=== PATIENT | male | born 1995 | race Caucasian/White ===

== ENCOUNTER 2017-08-29 16:20 | Emergency (ER) | payer SELFPAY ==
[~2017-08-29] VITALS: Ht 185.4 cm; Wt 139.1 kg
[2017-08-29 16:23] VITALS: BP 139/87; TEMP 98.3
[2017-08-29] MEDS ORDERED: AMOXICILLIN 50500 MG PO (17:15)
[2017-08-29 17:16] VITALS: PULSE 96
[2017-09-12] MEDS ORDERED: AMOXICILLIN 8751 TAB PO (12:56)
== END 2017-08-29 17:21 | disposition home or self-care (01) ==
LOC: COL.ER 16:20
DX: J02.0 Streptococcal pharyngitis (principal)

== ENCOUNTER → 2017-09-12 | Emergency (ER) | payer SELFPAY ==
[~2017-09-12] VITALS: Ht 182.9 cm; Wt 136.4 kg
[~2017-09-12] MED LIST: AMOXICILLIN 50500 MG PO; AMOXICILLIN 8751 TAB PO
[2017-09-12 11:10] VITALS: BP 138/82; PULSE 104; TEMP 98.2
[2017-09-12 12:35] LABS: CALCIUM 9.9 mg/dL (8.4-10.2); CREATININE, serum 0.91 mg/dL (0.66-1.25); POTASSIUM 4.3 mmol/L (3.4-5.0)
[2017-09-12 12:44] LABS: BASO # 0.1 (0.0-0.2); BASO % 0.6 % (0.0-2.0); EOS # 0.2 (0.0-0.7); EOS % 1.3 % (0-4.0); GRAN # 11.8 (1.4-6.5); GRAN % 67.3 % (42.2-75.2); HEMATOCRIT 46.8 % (42.0-52.0); LYMPH # 4.2 (1.2-3.4); MEAN CELL VOLUME 87 fl (80.0-100.0); MEAN CORPUSCULAR HEMOGLOBIN 30 pg (27.0-31.0); MEAN CORPUSCULAR HGB CONC 34 g/dl (33.0-37.0); MONO % 5.8 % (1.7-9.3); PLATELET COUNT 375 K/mm3 (130-400); RED BLOOD COUNT 5.41 M/mm3 (4.20-5.60); REDCELL DISTRIBUTION WIDTH-CV 12.5 % (11.5-14.5); WHITE BLOOD COUNT 17.5 K/mm3 (4.8-10.8)
== END ==
LOC: COL.ER 10:54
PROVIDERS: Nurse Practitioner
DX: J02.0 Streptococcal pharyngitis (principal)
CPT/HCPCS: J1100

== ENCOUNTER 2017-09-22 18:18 | Emergency (ER) | payer SELFPAY ==
[~2017-09-22] VITALS: Ht 185.4 cm; Wt 140.9 kg
[2017-09-22 18:20] VITALS: BP 132/84; PULSE 109; TEMP 97.8
[2017-09-22] MEDS ORDERED: CLEOCIN HCL300 MG PO (18:53)
== END 2017-09-22 19:01 | disposition home or self-care (01) ==
LOC: COL.ER 18:18
DX: J03.90 Acute tonsillitis, unspecified (principal)

== ENCOUNTER 2017-12-20 10:22 | Emergency (ER) | payer MEDICAID ==
[~2017-12-20] VITALS: Ht 185.4 cm; Wt 136.4 kg
[~2017-12-20 10:22] MED LIST changes: +CLEOCIN HCL300 MG PO
[2017-12-20 10:26] VITALS: BP 156/87; PULSE 104; TEMP 97.8
== END 2017-12-20 11:19 | disposition home or self-care (01) ==
LOC: COL.ER 10:22
DX: J03.90 Acute tonsillitis, unspecified (principal)

== ENCOUNTER 2018-04-26 11:59 | Emergency (ER) | payer MEDICAID ==
[~2018-04-26] VITALS: Ht 185.4 cm; Wt 135.0 kg
[2018-04-26 12:02] VITALS: BP 160/78; PULSE 93; TEMP 98.6
[2018-04-26] MEDS ORDERED: MAGIC MOUTH PO (12:41)
[2018-04-26] MEDS ORDERED: CLEOCIN HC150 MG/CAP PO (12:41)
== END 2018-04-26 13:08 | disposition home or self-care (01) ==
LOC: COL.ER 11:59
DX: J02.0 Streptococcal pharyngitis (principal)
CPT/HCPCS: J1100

== ENCOUNTER 2018-06-01 17:03 | Emergency (ER) | payer MEDICAID ==
[~2018-06-01] VITALS: Ht 185.4 cm; Wt 131.8 kg
[~2018-06-01 17:03] MED LIST changes: +CLEOCIN HC150 MG/CAP PO; +MAGIC MOUTH PO
[2018-06-01 17:13] VITALS: BP 138/85; TEMP 98.5
[2018-06-01] MEDS ORDERED: AMOXICILLIN 8751 TAB PO (17:29)
[2018-06-01 17:40] VITALS: PULSE 84
== END 2018-06-01 17:45 | disposition home or self-care (01) ==
LOC: COL.ER 17:03
DX: J03.91 Acute recurrent tonsillitis, unspecified (principal)
CPT/HCPCS: J1100

== ENCOUNTER 2018-06-29 00:10 | Emergency (ER) | payer MEDICAID ==
[~2018-06-29] VITALS: Ht 185.4 cm; Wt 120.5 kg
[2018-06-29 00:14] VITALS: BP 136/94; TEMP 98.5
[2018-06-29] MEDS ORDERED: LAMISIL250 M1 PO (00:49)
[2018-06-29 01:30] VITALS: PULSE 90
== END 2018-06-29 01:30 | disposition home or self-care (01) ==
LOC: COL.ER 00:10
DX: B35.4 Tinea corporis (principal)

== ENCOUNTER 2018-07-03 17:24 | Emergency (ER) | payer MEDICAID ==
[~2018-07-03] VITALS: Ht 185.4 cm; Wt 120.5 kg
[~2018-07-03 17:24] MED LIST changes: +LAMISIL250 M1 PO
[2018-07-03 17:28] VITALS: BP 140/77; TEMP 98.8
[2018-07-03] MEDS ORDERED: TRIAMCINOLONE A15 G3 TP (18:49)
[2018-07-03 19:16] VITALS: PULSE 100
== END 2018-07-03 19:17 | disposition home or self-care (01) ==
LOC: COL.ER 17:24
DX: L40.4 Guttate psoriasis (principal)

== ENCOUNTER 2018-07-11 15:52 | Emergency (ER) | payer MEDICAID ==
[~2018-07-11 15:52] MED LIST changes: +TRIAMCINOLONE A15 G3 TP
[2018-07-11 16:03] VITALS: TEMP 98.6
[2018-07-11] MEDS ORDERED: PREDNISONE20 MG PO (17:28)
[2018-07-11 17:50] VITALS: BP 144/93; PULSE 100
== END 2018-07-11 17:50 | disposition home or self-care (01) ==
LOC: COL.ER 15:52
DX: L40.9 Psoriasis, unspecified (principal)
CPT/HCPCS: J2930

== ENCOUNTER 2018-07-15 09:17 | Emergency (ER) | payer MEDICAID ==
[~2018-07-15] VITALS: Ht 185.4 cm; Wt 136.4 kg
[~2018-07-15 09:17] MED LIST changes: +PREDNISONE20 MG PO
[2018-07-15 09:20] VITALS: BP 154/83
[2018-07-15] MEDS ORDERED: VITAMIN D 1001000 IU PO (09:25)
[2018-07-15 10:23] VITALS: PULSE 92; TEMP 97.2
== END 2018-07-15 10:22 | disposition home or self-care (01) ==
LOC: COL.ER 09:17
DX: J02.9 Acute pharyngitis, unspecified (principal)

== ENCOUNTER 2018-09-18 03:41 | Emergency (ER) | payer MEDICAID ==
[~2018-09-18] VITALS: Ht 185.4 cm; Wt 141.8 kg
[~2018-09-18 03:41] MED LIST changes: +VITAMIN D 1001000 IU PO
[2018-09-18 03:49] VITALS: BP 137/82; TEMP 99
[2018-09-18] MEDS ORDERED: AMOXICILLIN 8751 TAB PO (06:02)
[2018-09-18 06:12] VITALS: PULSE 92
== END 2018-09-18 06:12 | disposition home or self-care (01) ==
LOC: COL.ER 03:41
DX: J03.90 Acute tonsillitis, unspecified (principal)
CPT/HCPCS: J8540

== ENCOUNTER 2019-01-23 20:19 | Observation (INO) | payer MEDICAID ==
[~2019-01-23] VITALS: Ht 188 cm; Wt 118.7 kg
[2019-01-23 21:07] LABS: BASO % 0.4 % (0.0-2.0); EOS # 0.1 (0.0-0.7); EOS % 1.1 % (0-4.0); GRAN # 8.2 (1.4-6.5); GRAN % 83.9 % (42.2-75.2); HEMATOCRIT 48.4 % (42.0-52.0); HEMOGLOBIN 16.5 g/dl (13.5-18.0); LYMPH # 1.2 (1.2-3.4); LYMPH % 12.3 % (20.0-51.0); MEAN CELL VOLUME 85 fl (80.0-100.0); MEAN CORPUSCULAR HEMOGLOBIN 29 pg (27.0-31.0); MEAN CORPUSCULAR HGB CONC 34 g/dl (33.0-37.0); MEAN PLATELET VOLUME 9.6 fl (7.4-10.4); MONO # 0.2 (0.1-0.6); MONO % 1.7 % (1.7-9.3); PLATELET COUNT 327 K/mm3 (130-400); RED BLOOD COUNT 5.68 M/mm3 (4.20-5.60); REDCELL DISTRIBUTION WIDTH-CV 12.2 % (11.5-14.5)
[2019-01-23 21:18] LABS: ALBUMIN 4.3 gm/dL (3.5-5.0); BILIRUBIN,TOTAL 0.5 mg/dL (0.0-1.0); C-REACTIVE PROTEIN 2.1 mg/dL (0.0-0.9); CALCIUM 8.9 mg/dL (8.4-10.2); CREATININE, serum 1.02 mg/dL (0.66-1.25); POTASSIUM 3.9 mmol/L (3.4-5.0)
[2019-01-23 21:58] LABS: COLLECTION METHOD CLEAN CATCH
[2019-01-23 22:08] LABS: MUCOUS Present /lpf; PH 5 (5-8); SQUAMOUS EPITHELIAL 0-2 /hpf; URINE APPEARANCE Clear; URINE BACTERIA None Seen /hpf; URINE BILIRUBIN Negative (NEGATIVE); URINE BLOOD Negative (NEGATIVE); URINE COLOR Amber; URINE GLUCOSE Negative (NEGATIVE); URINE KETONE Negative (NEGATIVE); URINE LEUKOCYTE ESTERASE 1+ (NEGATIVE); URINE NITRATE Negative (NEGATIVE); URINE PROTEIN(semi-quant) Negative (NEGATIVE); URINE RBC 0-2 /hpf; URINE UROBILINOGEN Negative (NEGATIVE)
[2019-01-23 23:54] VITALS: BP 128/66; PULSE 114; TEMP 98.8
--- NOTE | 2019-01-24 01:51 | NUR ---
Admission assessment complete. Patient c/o dizziness, denies pain. at bedside with 3 month old baby. Per patient, baby has croup. Discussed with dope house operator helper and CRYSTAL Parks. Due to baby being positive for croup, placed in droplet precautions. Patient notified of this change, and is ok with plan.
[2019-01-24 03:44] VITALS: BP 122/70; PULSE 88; TEMP 98.5
--- NOTE | 2019-01-24 04:53 | NUR ---
Patient lying in bed, awake. at bedside. Patient denies further needs at this time. Will continue to assess.
[2019-01-24 07:21] LABS: BASO # 0.1 (0.0-0.2); BASO % 0.5 % (0.0-2.0); EOS # 0.3 (0.0-0.7); EOS % 2.9 % (0-4.0); GRAN # 7.5 (1.4-6.5); GRAN % 66.7 % (42.2-75.2); HEMATOCRIT 44.7 % (42.0-52.0); LYMPH # 2.4 (1.2-3.4); LYMPH % 20.9 % (20.0-51.0); MEAN CELL VOLUME 86 fl (80.0-100.0); MEAN CORPUSCULAR HEMOGLOBIN 29 pg (27.0-31.0); MEAN CORPUSCULAR HGB CONC 34 g/dl (33.0-37.0); MEAN PLATELET VOLUME 10.2 fl (7.4-10.4); MONO % 8.5 % (1.7-9.3); PLATELET COUNT 319 K/mm3 (130-400); RED BLOOD COUNT 5.22 M/mm3 (4.20-5.60); REDCELL DISTRIBUTION WIDTH-CV 12.4 % (11.5-14.5)
[2019-01-24 07:27] LABS: CALCIUM 8.5 mg/dL (8.4-10.2); CREATININE, serum 0.83 mg/dL (0.66-1.25); POTASSIUM 3.6 mmol/L (3.4-5.0)
--- NOTE | 2019-01-24 07:59 | NUR ---
Assessment completed, alert/oriented, vital signs stable, reports alex is gone sensaiv being given antiemetics in the ED last night, stated loose stools have slowed down substantially /I have insturcted him to call when he has next stool sample so we can check for C-Diff, he is tolerating CL diet w/o and N/V or abd pain, heart RRR/distal pulses are palpable, lungs CTA/ no resp.difficulty noted, abdomen is soft and non-tender to palpation, having good UOP, WBC up >11 this morning, IVF infusing, significant other and 3 month old daughter present in the room and his daughter is diagnosed with Croupe and Ear infection so we are practicing contact/ droplet isolation at this time, denies other needs at this time and hoping to get to go home today
[2019-01-24 08:05] VITALS: BP 117/70; PULSE 89; TEMP 98.3
[2019-01-24 13:37] VITALS: BP 118/66; PULSE 87; TEMP 98.1
--- NOTE | 2019-01-24 14:13 | NUR ---
AIDA met with the patient to discuss a discharge plan. The patient lives at [address] [place] [address] in [place]. The patient reports independence with ADLs and does not use any DME. The patient receives his medical care at [facility] in [place]. The patient receives his medications from [facility]. The patient does not have advanced directives in the EMR and he was not interested in a DPOA-HC form at this time. Upon discharge the patient plans to return home. There are no additional needs at this time.
--- NOTE | 2019-01-24 15:17 | NUR ---
Discharge orders reviewed with patient, instructed to advance diet slowly/ as tolerated, try and drink plent of fluids/ gatorade to avoid getting too dehydrated again, isntructed to follow up with PCP at [facility] clinic/ referral faxed over, pending stool cx to follow up with at PCP appointment, IV removed, tele removed, leaving with his significant other, I will walk them out the door
== END 2019-01-24 15:20 | disposition home or self-care (01) ==
LOC: COL.ER 20:19 → SURG 23:12
PROVIDERS: Family Medicine; Nurse Practitioner Family; ADMIT Hospitalist
DX: K52.9 Noninfective gastroenteritis and colitis, unspecified (principal); F17.210 Nicotine dependence, cigarettes, uncomplicated
CPT/HCPCS: G0378; J0696; J2405; J7030; J7120; Q9967

== ENCOUNTER 2019-02-14 11:44 | Emergency (ER) | payer MEDICAID ==
[~2019-02-14] VITALS: Ht 188 cm; Wt 118.2 kg
[2019-02-14 12:12] VITALS: BP 132/69; TEMP 99.3
[2019-02-14] MEDS ORDERED: TYLENOL 325MG325 MG PO (12:24)
[2019-02-14] MEDS ORDERED: CEPHALEXIN500 M1 PO (13:08)
[2019-02-14 13:27] VITALS: PULSE 80
== END 2019-02-14 13:27 | disposition home or self-care (01) ==
LOC: COL.ER 11:44
DX: S61.217A Laceration without foreign body of left little finger without damage to nail, initial encounter (principal); Z23 Encounter for immunization; F17.210 Nicotine dependence, cigarettes, uncomplicated; F12.90 Cannabis use, unspecified, uncomplicated; W34.00XA Accidental discharge from unspecified firearms or gun, initial encounter; Y92.009 Unspecified place in unspecified non-institutional (private) residence as the place of occurrence of the external cause

== ENCOUNTER 2019-08-04 11:45 | Emergency (ER) | payer MEDICAID ==
[~2019-08-04] VITALS: Ht 188 cm; Wt 131.8 kg
[~2019-08-04 11:45] MED LIST changes: +CEPHALEXIN500 M1 PO; +TYLENOL 325MG325 MG PO
[2019-08-04 11:49] VITALS: BP 136/89; TEMP 97.7
[2019-08-04] MEDS ORDERED: AMOXICILLIN 8751 TAB PO (13:02)
[2019-08-04 13:12] VITALS: PULSE 72
== END 2019-08-04 13:13 | disposition home or self-care (01) ==
LOC: COL.ER 11:45
DX: R11.10 Vomiting, unspecified (principal); R09.81 Nasal congestion; F17.210 Nicotine dependence, cigarettes, uncomplicated

== ENCOUNTER 2019-08-09 02:47 | Emergency (ER) | payer MEDICAID ==
[~2019-08-09] VITALS: Ht 188 cm; Wt 136.7 kg
[2019-08-09 02:51] VITALS: BP 129/74; TEMP 98
[2019-08-09] MEDS ORDERED: ROXICODONE 55 MG/TAB PO (02:56)
[2019-08-09 04:09] VITALS: PULSE 70
== END 2019-08-09 04:10 | disposition home or self-care (01) ==
LOC: COL.ER 02:47
DX: J95.830 Postprocedural hemorrhage of a respiratory system organ or structure following a respiratory system procedure (principal); K13.79 Other lesions of oral mucosa; F17.210 Nicotine dependence, cigarettes, uncomplicated; F12.90 Cannabis use, unspecified, uncomplicated; Z90.89 Acquired absence of other organs
CPT/HCPCS: J1100

== ENCOUNTER 2021-05-24 04:13 | Emergency (ER) | payer MEDICAID ==
[~2021-05-24] VITALS: Ht 190.5 cm; Wt 127.3 kg
[~2021-05-24 04:13] MED LIST changes: +ROXICODONE 55 MG/TAB PO
[2021-05-24 04:19] VITALS: TEMP 97
[2021-05-24 04:40] VITALS: BP 132/70; PULSE 78
== END 2021-05-24 04:40 | disposition home or self-care (01) ==
LOC: COL.ER 04:13
DX: H92.02 Otalgia, left ear (principal); F17.210 Nicotine dependence, cigarettes, uncomplicated; Z00.00 Encounter for general adult medical examination without abnormal findings

== ENCOUNTER 2021-11-27 10:23 | Emergency (ER) | payer MEDICAID ==
[~2021-11-27] VITALS: Ht 185.4 cm; Wt 154.5 kg
[2021-11-27 10:42] VITALS: TEMP 98.5
[2021-11-27 13:01] VITALS: BP 150/92; PULSE 87
== END 2021-11-27 13:01 | disposition home or self-care (01) ==
LOC: COL.ER 10:23
DX: N50.811 Right testicular pain (principal); N50.812 Left testicular pain; F17.210 Nicotine dependence, cigarettes, uncomplicated

== ENCOUNTER 2022-01-20 02:09 | Emergency (ER) | payer MEDICAID ==
[~2022-01-20] VITALS: Ht 188 cm; Wt 159.1 kg
[2022-01-20 02:14] VITALS: TEMP 97.2
[2022-01-20 02:51] LABS: BASO # 0.1 K/mm3 (0.0-0.2); BASO % 0.7 % (0.0-2.0); EOS # 0.4 K/mm3 (0.0-0.7); EOS % 3.3 % (0.0-4.0); GRAN # 4.8 K/mm3 (1.4-6.5); GRAN % 43.8 % (42.2-75.2); HEMATOCRIT 44.3 % (42.0-52.0); HEMOGLOBIN 15.7 g/dl (13.5-18.0); LYMPH # 4.9 K/mm3 (1.2-3.4); MEAN CELL VOLUME 83 fl (80.0-100.0); MEAN CORPUSCULAR HEMOGLOBIN 30 pg (27-31); MEAN CORPUSCULAR HGB CONC 35 g/dl (33.0-37.0); MEAN PLATELET VOLUME 9.8 fl (7.4-10.4); MONO # 0.8 K/mm3 (0.1-0.6); MONO % 7.6 % (1.7-9.3); PLATELET COUNT 394 K/mm3 (130-400); RED BLOOD COUNT 5.31 M/mm3 (4.20-5.60); REDCELL DISTRIBUTION WIDTH-CV 12.4 % (11.5-14.5)
[2022-01-20 03:05] LABS: ALANINE AMINOTRANSFERASE 42 U/L (0-55); ALBUMIN 4.4 gm/dL (3.5-5.0); ALKALINE PHOSPHATASE 77 U/L (40-150); ANION GAP 10 mmol/L (7-16); AST,SGOT 21 U/L (5-34); BILIRUBIN,TOTAL 0.3 mg/dL (0.2-1.2); BLOOD UREA NITROGEN 15 mg/dL (9-21); CALCIUM 9.9 mg/dL (8.4-10.2); CARBON DIOXIDE 25 mmol/L (22-29); CHLORIDE 104 mmol/L (98-107); CREATININE, serum 0.97 mg/dL (0.72-1.25); GLUCOSE 90 mg/dL (70-99); SODIUM 139 mmol/L (136-145); TOTAL PROTEIN 8.2 gm/dL (6.2-8.1)
[2022-01-20 03:14] LABS: TROPONIN-I < 0.010 ng/mL (0.00-0.033)
[2022-01-20 03:53] VITALS: BP 118/82; PULSE 89
== END 2022-01-20 03:55 | disposition home or self-care (01) ==
LOC: COL.ER 02:09
PROVIDERS: Emergency Medicine
DX: R05.9 Cough, unspecified (principal)

== ENCOUNTER 2023-10-30 16:07 | Emergency (ER) | payer MEDICAID ==
[~2023-10-30] VITALS: Ht 185.4 cm; Wt 168.2 kg
[~2023-10-30 16:07] MED LIST changes: +PAXLOVID CO-PA1 EACH PO; +PEN-VEE K500 MG PO; +ZOFRAN ODT4 MG PO
[2023-10-30 16:10] VITALS: BP 130/86; TEMP 98.2
[2023-10-30] MEDS ORDERED: PREDNISONE50 MG PO (17:21)
[2023-10-30] MEDS ORDERED: FLONASE NASAL S16 GM NS (17:21)
[2023-10-30 17:40] VITALS: PULSE 87
== END 2023-10-30 17:40 | disposition home or self-care (01) ==
LOC: COL.ER 16:07
DX: H93.8X1 Other specified disorders of right ear (principal)